=== PATIENT | male | born 2000 | race Caucasian/White ===

== ENCOUNTER 2024-10-31 13:48 | Emergency (ER) | payer OTHER, SELFPAY ==
[2024-10-31 14:00] VITALS: BP 148/91; PULSE 56; TEMP 36.6; O2SAT 100; BMI 18.7
--- OUTSIDE RECORDS SUMMARY | 2024-10-31 14:03 | XMS_ITS | Clinical Summary ---
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 Immunizations Immunization Administration Dates Next Due DTP 10/14/2012 DTaP 01/25/2005 DTaP, Unspecified 01/06/2002, 2,06/04/2001,03/21 HPV, Quadrivalent 05/26/2018,08/15/2015 Hep B, Adolescent or Pediatric 2000 HiB, unspecified 01/06/2002 Hib (HbOC) 06/04/2001 Hib / Hep B 07/07/2001,03/21/2001 IPV 01/25/2005, 2,06/04/2001,03/21 Influenza, injectable, MDCK, preservative free, quadrivalent 04/21/2021 Influenza, injectable, quadr ivalent, preservative free 01/13/2018 Influenza, live, intranasal 01/20/2009 Influenza, seasonal, injectable 01/25/2005 MMR 01/25/2005,01/06/2002 Meningococcal ACWY, unspecified 10/14/2012 Meningococcal MCV4P 05/24/2017 Novel [id number], preservative-free 04/13/2009,03/09/2009 Pneumococcal Conjugate PCV 7 06/04/2001,03/21/20 01 Varicella 10/14/2012,01/06/2002 Family History Medical History Relation Name Comments Cancer Maternal Grandfather Cancer Maternal Grandmother Alisa Depression Maternal Grandmother Alisa Asthma Mother Jyllian Heart disease Mother Jyllian Cancer Mother's Brother Sachin Relation Name Status Comments Brother 1 brother Maternal Grandfather Maternal Grandmother Alisa Mother Jyllian Mother's Brother Sachin Sister 6 sisters Social History Tobacco Use Types Packs/Day Years Used Date Smoking Tobacco: Some Days Cigarettes Started: 2020 Smokeless Tobacco: Never Tobacco Cessation:Ready to Q uit: Not Asked; Counseling Given: Not Answered Comments:Are you an other tobacco user? Yes CBD Alcohol Use Standard Drinks/Week Comments Not Currently 1 (1 standard drink = 0.6 oz pure alcohol) Every other week here and there, caffeine intake: 1-2 cups per day ; coffee Humiliation, Afraid, Rape, and Kick questionnair e Answer Date Recorded Within the last year, have y ou been afraid of your partner or ex-partner? No 12/25/2022 Within the last year, have y ou been humiliated or emotionally abused in other ways by your partner or ex-partner? No Within the last year, have y ou been kicked, hit, slapped, or otherwise physically hurt by your partner or ex-partner? No 12/25/2022 Within the last year, have y ou been raped or forced to have any kind of sexual activity by your partner or ex-partner? No 12/25/2022 Social Connection and Isolation Panel [NHANES] A nswer Date Recorded In a typical week, how many times do you talk on the phone with family, friends, or neighbors? Three times a week 12/25/2022 How often do you get togethe r with friends or relatives? Once a week 12/25/2022 How often do you attend chur ch or holiness services? Never 12/25/2022 Do you belong to any clubs o r organizations such as adventism groups, unions, fraternal or athletic groups, or school groups? No 12/25/2022 How often do you attend meet ings of the clubs or organizations you belong to? Never 12/25/2022 Are you , , di vorced, , never , or living with a partner? 12/25/2022 AUDIT-C Answer Date Recorded Q1: How often do you have a drink containing alc ohol? 2-4 times a month 12/25/2022 Q2: How many drinks containi ng alcohol do you have on a typical day when you are drinking? 1 or 2 12/25/2022 Q3: How often do you have si x or more drinks on one occasion? Less than monthly 12/25/2022 Overall Financial Resource Strain (CARDIA) Answe r Date Recorded How hard is it for you to pa y for the very basics like food, housing, medical care, and heating? Somewhat hard 12/25/2022 PHQ-2 Answer Date Recorded Patient Health Questionnaire-2 Score 0 12/25/2022 [facility] - Occupational Stress Questionnaire Answer Date Recorded Do you feel stress - tense, restless, nervous, or anxious, or unable to sleep at night because your mind is troubled all the time - these days? Very much 12/25/2022 Exercise Vital Sign Answer Date Recorde d On average, how many days pe r week do you engage in moderate to strenuous exercise (like a brisk walk)? 5 days 12/25/2022 On average, how many minutes do you engage in exercise at this level? 100 min 12/25/2022 Hunger Vital Sign Answer Date Recorded Within the past 12 months, y ou worried that your food would run out before you got the money to buy more. Never true Within the past 12 months, t he food you bought just didn't last and you didn't have money to get more. Sometimes true PRAPARE - Transportation Answer Date Re corded In the past 12 months, has l ack of transportation kept you from medical appointments or from getting medications? No 12/01 In the past 12 months, has l ack of transportation kept you from meetings, work, or from getting things needed for daily living? No 12/25/2022 Housing Stability Vital Sign Answer Eldon e Recorded In the last 12 months, was t here a time when you were not able to pay the mortgage or rent on time? No 12/25/2022 In the last 12 months, how many places have you lived? 1 12/25/2022 In the last 12 months, was t here a time when you did not have a steady place to sleep or slept in a snf (including now)? No 12/25/2022 Sex and Gender Information Value Date Recorded Sex Assigned at Not on file Legal Sex Male 7:20 PM EDT Gender Identity Not on file Sexual Orientation Not on file Last Filed Vital Signs Vital Sign Reading Time Taken Comments Blood Pressure 130/66 12/25/2022 4:32 PM EDT Pulse 105 12/25/2022 4:32 PM EDT Temperature 37.2 C (99 F) 12/25/2022 4:32 PM EDT Respiratory Rate - - Oxygen Saturation 98% 12/25/2022 4:32 PM EDT Inhaled Oxygen Concentration - - Weight 68.5 kg (151 lb) 12/25/2022 4:32 PM EDT Height 186.7 cm (6' 1.5 ) 12/25/2022 4:32 PM EDT Body Mass Index 19.65 12/25/2022 4:32 PM EDT Plan of Treatment Health Maintenance Due Date Last Done Comments Influenza Vaccine (#1) 2024 2, 01/13/2018, 01/20/2009, Additional history exists Insurance [employer] Care Teams Upholstery Handler Relationship Specialty Start Date End Date Taiwo Woodson DO [address] [facility] [address] [place] [address] PCP - General Family Medicine 08/07/22
--- OUTSIDE RECORDS SUMMARY | 2024-10-31 14:03 | XMS_ITS | Clinical Summary ---
Author Organization [facility] Address [id number] [address] [place] [address] Care Team Providers Care Mitten Stitcher Name Role Phone Carmela Loera MD Primary Care Provider Allergies No known active allergies Medications No known medications Active Problems No known active problems Family History Medical History Relation Name Comments Arrhythmia Maternal Grandfather afib Thyroid Issues Maternal Grandmother Arrhythmia Mother VT and SVT - ponce d ablation Asthma Neg Hx Clotting disorder Neg Hx Diabetes Neg Hx Heart attack Neg Hx Heart defect Neg Hx High Cholesterol Neg Hx Hypertension Neg Hx Seizures Neg Hx Stroke Neg Hx Sudden Neg Hx Relation Name Status Comments Maternal Grandfather Maternal Grandmother Mother Social History Tobacco Use Types Packs/Day Years Used Date Smoking Tobacco: Never Smokeless Tobacco: Never Alcohol Use Standard Drinks/Week Comments No 0 (1 standard drink = 0.6 oz pur e alcohol) Childcare Answer Date Recorded Childcare Unknown 09/04/2018 Employment Answer Date Recorded Employment Unknown 09/04/2018 Purpose - Life Answer Date Recorded Purpose and direction in life Unknown Sex and Gender Information Value Date Recorded Sex Assigned at Not on file Legal Sex Male 3:42 PM EDT Gender Identity Not on file Sexual Orientation Not on file Last Filed Vital Signs Vital Sign Reading Time Taken Comments Blood Pressure 119/80 08/30/2017 8:39 AM EDT Pulse 83 08/30/2017 8:39 AM EDT Temperature - - Respiratory Rate - - Oxygen Saturation 100% 08/30/2017 8:36 AM EDT Inhaled Oxygen Concentration - - Weight 65.7 kg (144 lb 13.5 oz) 08/30/2017 8:36 AM EDT Height 183.7 cm (6' 0.32 ) 08/30/2017 8:36 AM ED T Body Mass Index 19.47 08/30/2017 8:36 AM EDT Plan of Treatment Health Maintenance Due Date Last Done Comments Depression Screening 2012 Tobacco Screening 2012 Adult BMI Screening 2018 DTaP,Tdap and Td Vaccines (1 - Tdap) 12/21/2019 Influenza Vaccine 11/30/2024 Medical Devices Not on file Insurance [employer] [place] Care Teams Mitten Stitcher Relationship Specialty Start Date End Date Carmela Loera MD [address] [place] [address] PCP - General 08/22/17
--- OUTSIDE RECORDS SUMMARY | 2024-10-31 14:03 | XMS_ITS | Clinical Summary ---
Author Organization [facility] Address [address] [place] [address] Phone Care Team Providers Care Well Flow Operator Name Role Phone Taiwo Woodson DO Primary Care Provider [phone] Social History Tobacco Use Types Packs/Day Years Used Date Smoking Tobacco: Never Assessed Sex and Gender Information Value Date Recorded Sex Assigned at Not on file Legal Sex Male 3:44 PM EST Gender Identity Not on file Sexual Orientation Not on file Plan of Treatment Not on file Care Teams Well Flow Operator Relationship Specialty Start Date End Date Taiwo Woodson DO [address] [address] PCP - General 04/04/20
--- OUTSIDE RECORDS SUMMARY | 2024-10-31 14:03 | XMS_ITS | Encounter Summary ---
Author Organization [facility] Address [address] [place] [address] Care Team Providers Care Cnc Lathe Machine Operator Name Role Phone CharityTaiwo tyson Primary Care Provider [phone] Encounter Details Date Type Department Care Team (Late st Contact Info) Description 04/01/2024 External Result Encounter [facility] External Department Unsolicited Peggy Marquez, PALLAVI [address] [place] [address] Social History Tobacco Use Types Packs/Day Years Used Date Smoking Tobacco: Some Days Cigarettes Started: 2020 Smokeless Tobacco: Never Comments:Are you an other to bacco user? Yes CBD Alcohol Use Standard Drinks/Week [...] often do you attend chur ch or mu-ism services? Never 12/25/2022 Do you belong to any clubs o r organizations such as mu-ism groups, unions, fraternal or athletic groups, or [...] Recorded Patient Health Questionnaire-2 Score 0 12/25/2022 [facility] Occupat ional Health - Occupational Stress [...] place to sleep or slept in a long term (including now)? No 12/25/2022 Sex and Gender Information Value Date Recorded Sex Assigned at Not on file Legal Sex Male 7:20 PM EDT Gender Identity Not on file Sexual Orientation Not on file documented as of this encounter Plan of Treatment Not on file documented as of this encounter Procedures Procedure Name Priority Date/Time Associated Diagnosis Comments XR FOOT 3+ VIEWS LEFT 04/01/2024 1:07 PM EST documented in this encounter Results * XR foot 3+ views left (04/01/2024 1:07 PM EST) Anatomical Region Laterality Modality Lower Extremities, Foot Left Radi[facility] 04/01/2024 1:07 PM EST Impressions 04/01/2024 1:20 PM EST No acute displaced fracture Impression dictated by: Sunil Nixon M.D.04/01/2024 1:17 PM Dictation Location: [facility] Transcribed By: [facility] 04/01/24 1317 Dictated By: Sunil Nixon DO 04/01/24 1307 Signed By: <Electronically signed by Sunil Nixon DO in OV> 04/01/24 1317 Narrative 04/01/2024 1:[address] [address] XRay Report Signed Patient: Simeon Ku MR#: [id number] : 2000 Acct:[id number] Age/Sex: 23 / M ADM Date: 04/01/24 Loc: ER Room: Type: [facility] ER Attending Dr: Copies to: Peggy Marquez APRN Ordering Provider: Peggy Marquez APRN Date of Service: 04/01/24 XR/XR foot LT min 3V*: Extremity Injury, Lower 3 views left foot plain film COMPARISON:None HISTORY: Left foot injury. Bruising of the first toe ACUTE FINDINGS: None DEGENERATIVE CHANGE: Unremarkable SOFT TISSUE FINDINGS: Unremarkable JOINT EFFUSION: None POSTOP CHANGES: None BONE MINERALIZATION: Adequate XR/XR foot LT min 3V* Procedure Note Radiology, Radiologist, MD - 04/01/[address] [address] XRay Report Signed Patient: Simeon Ku MMR#: [id number] : 2000Acct:[id number] Age/Sex: 23 / MADM Date: 04/01/24 Loc: ER Room:Type: [facility] ER Attending Dr: Copies to: Peggy Marquez APRN Ordering Provider: Peggy Marquez APRN Date of Service: 04/01/24 XR/XR foot LT min 3V*: Extremity Injury, Lower 3 views left foot plain film COMPARISON:None HISTORY: Left foot injury. Bruising of the first toe ACUTE FINDINGS: None DEGENERATIVE CHANGE: Unremarkable SOFT TISSUE FINDINGS: Unremarkable JOINT EFFUSION: None POSTOP CHANGES: None BONE MINERALIZATION: Adequate XR/XR foot LT min 3V* IMPRESSION: No acute displaced fracture Impression dictated by: Sunil Nixon M.D.04/01/2024 1:17 PM Dictation Location: [place] [address] Transcribed By: [facility] 04/01/24 1317 Dictated By: Sunil Nixon DO 04/01/24 1307 Signed By: <Electronically signed by Sunil Nixon DO in OV> 04/01/24 1317 us Peggy Marquez [employer] IMG XR PROCEDURES Final Resu lt documented in this encounter Visit Diagnoses Not on filedocumented in this encounter Care Teams Cnc Lathe Machine Operator Relationship Specialty Start Date End Date Taiwo Woodson DO [address] [facility] [address] [place] [id number] PCP - General Family Medicine 08/07/22 documented as of this encounter
--- OUTSIDE RECORDS SUMMARY | 2024-10-31 14:03 | XMS_ITS | Encounter Summary ---
Author Organization [facility] Address [address] [facility] [place] [address] Care Team Providers Care Breaker Up Name Role Phone CharityTaiwo tyson Primary Care Provider [phone] Encounter Details Date Type Department Care Team (Late st Contact Info) Description 12/25/2022 Abstract [facility] [address] [facility] [address] [place] [id number] Niranjan Cruz PA [address] [facility] [address] [place] [address] Social History Tobacco Use Types Packs/Day Years [...] often do you attend chur ch or latter-day services? Never 12/25/2022 Do you belong to any clubs o r organizations such as zoroastrianism groups, unions, fraternal or athletic groups, or [...] Recorded Patient Health Questionnaire-2 Score 0 12/25/2022 [facility] Occupat ional Health - Occupational Stress [...] place to sleep or slept in a long-term (including now)? No 12/25/2022 Sex and Gender Information Value Date Recorded Sex Assigned at Not on file Legal Sex Male 7:20 PM EDT Gender Identity Not on file Sexual Orientation Not on file COVID-19 Exposure Response Date Recorded In the last 10 days, have yo u been in contact with someone who was confirmed or suspected to have Coronavirus/COVID-19? No / Unsure 12/25/2022 1:58 PM EDT documented as of this encounter Functional Status * Audit-C Score Answer Date of Assessment Author 3 12/25/2022 1:57 PM EDT Sundar, Generic * Q1: How often do you have a drink containing alcohol? Answer Date of Assessment Author 2-4 times a month 12/25/2022 1:57 PM EDT Sundar , Generic * Q2: How many drinks containing alcohol do you have on a typical day when you are drinking? Answer Date of Assessment Author 1 or 2 12/25/2022 1:57 PM EDT Sundar, Generic * Q3: How often do you have six or more drinks on one occasion? Answer Date of Assessment Author Less than monthly 12/25/2022 1:57 PM EDT Mychart , Generic * Over the past 2 weeks, how often have you been bothered by any of the following problems? Question Answer Date of Assessment Author Little interest or pleasure in doing things Not at all 12/25/2022 4:42 PM EDT Marielle Flores MA Feeling down, depressed, or hopeless Not at all 12/25/2022 4:42 PM EDT Marielle Flores MA Patient Health Questionnaire -2 Score 0 12/25/2022 4:42 PM EDT Marielle Flores MA documented as of this encounter Plan of Treatment Not on file documented as of this encounter Visit Diagnoses Not on filedocumented in this encounter Care Teams Breaker Up Relationship Specialty Start Date End Date Taiwo Woodson DO [address] [facility] [address] [place] [address] PCP - General Family Medicine 08/07/22 documented as of this encounter
--- OUTSIDE RECORDS SUMMARY | 2024-10-31 14:03 | XMS_ITS | Patient Health Record ---
Author Organization [facility] Address [address] [place] [address] Care Team Providers Care Brass Cleaner Name Role Phone Dr. Taiwo Woodson Primary Care Provider Unavailable Allergies No Known Allergies Reason For Referral No Information Medications Medication SIG (Take, Route, Fr equency, Duration) Notes Start Date End Date Status Atenolol 25 MG 1 tab(s) orally once a day Active Social History Tobacco Use: Social History Observation Description Date Details (start date - stop date) Current Smoker NA - NA Tobacco Use Question Answer Notes Are you a Current smoker How often do you smoke cigarettes Some days but not every day Are you interested in quitting? Thinking about q uitting Additional Findings: Tobacco User e-Cigarette Problems Problem Type SNOMED Code ICD Code Onset Dates Problem Status W/U Status Risk Notes Problem Hypertension (39704243) Hypertension (I10) Active confirmed Problem Smoker (49297755) Smoker (F17.200) Active confirmed Plan Of Treatment No Information Insurance Providers Payer Name Payer Address Payer Phone Subscriber Number Group Number Insured Name Patient Relationship to Insured Coverage Start Date Coverage End Date [employer] [address] [address] [place] [address] [id number] ELIZABETH MCKEON Natural Child - Insured has Financial Responsibility [employer] [place] [employer] [address] [place] [address] [id number] Simeon Gibbs Self - patient is the insured Medical (General) History Medical History History ICD Code Hypertension I10 Surgical History Surgery Date(Month/Year) ear tubes wisdom teeth extraction
--- NOTE | 2024-10-31 14:11 | CT_ITS ---
The [address] [address] Patient Name: DOROTA AWAN MRN: [id number] date: 2000 Sex: M Assigned Patient Location: ER Current Patient Location: Accession/Order Number: [id number] Exam Date: 10/31/2024 15:36 Report Date: 10/31/2024 15:44 At the request of: BRANDY SAMUEL Procedure: CT facial bones w con CT facial bones w con 10/31/2024 3:10 PM SIGNS AND SYMPTOMS: Facial swelling status post cyst removal CONTRAST: 100 mL of intravenous Omnipaque 300 TECHNIQUE: Multidetector CT axial slices of the facial bones were obtainedwith IV contrast. Helical, sagittal, coronal, and 3-D reconstructions were performed and viewed on a separate workstation and reviewed to further define anatomy and possible pathology. CT was performed with one or more of the following dose reduction techniques: Automated exposure control, adjustment of the mA and/or kV according to patient size, or use of iterative reconstruction technique. COMPARISON: None. FINDINGS: Fracture: None. Paranasal sinuses and mastoids: There is polypoid mucosal thickening in the maxillary sinuses. Soft tissue swelling: There is soft tissue swelling in the frontal scalp extending to the right superficial temporal scalp, along the bridge of the nose, and the periorbital soft tissues right greater than left. No abscess formation. Globes: Intact. Upper aerodigestive tract: Within normal limits. Joints: Intact. Temporal mandibular joints: Intact. Infratemporal fossa: Within normal limits. CT/CT facial bones w con IMPRESSION: No evidence of fracture or dislocation. There is soft tissue swelling in the frontal scalp extending to the right superficial temporal scalp, along the bridge of the nose, and the periorbital soft tissues right greater than left. No abscess formation. Impression dictated by: Jaime Landaverde M.D. 10/31/2024 3:44 PM Dictation Location: [place] [address] Electronically authenticated by: [id number] Date: 10/31/2024 15:44
--- NOTE | 2024-10-31 14:12 | ED.SKABFB1 ---
HPI - Skin/Abscess/Foreign Bdy General Chief complaint: Skin/Abscess/Foreign Body Stated complaint: SURGERY COMPLACTIONS Time Seen by Provider: 10/31/24 14:07 Source: patient Mode of arrival: walk-in Limitations: no limitations History of Present Illness HPI narrative: Patient is a 23-year-old male who presents to the emergency department with his family for reevaluation of facial swelling after procedure. Patient states 4 days ago he had a cyst removed from his scalp. This was performed by a liner machine operator. He was told that he would have swelling and bruising around the area but he has had worsening swelling over the forehead and bilateral eyes. He has not had any redness, drainage, fevers, vomiting. He has no pain. He states today his right eye was significantly swollen. Related Data Home Medications ?Medication ?Instructions ?Recorded ?Confirmed No Known Home Medications 10/31/24 10/31/24 Allergies Allergy/AdvReac Type Severity Reaction Status Date / Time No Known Drug Allergies Allergy Verified 10/31/24 13:59 Review of Systems ROS Constitutional Denies: fever or chills Ears, nose, mouth, and throat Denies: throat pain or throat swelling Cardiovascular Denies: chest pain Respiratory Denies: shortness of breath or cough Gastrointestinal Denies: nausea or vomiting Integumentary/Breast Denies: rash Hematologic/Lymphatic Denies: easy bruising or easy bleeding PFSH PFS Social History Little interest or pleasure in doing things: not at all Feeling down, depressed, or hopeless: not at all Exam Narrative Exam Narrative: Gen.: Awake, alert, in no distress Head: Normocephalic, atraumatic ENT: Moist mucous membranes, face is swollen over the forehead and orbits with right upper and lower eyelids swollen shut. No erythema, red streaking. Well-healing incision of the scalp past the hairline. No surrounding redness or drainage. Respiratory: No respiratory distress Cardio: Regular rate and rhythm Extremities: Moves extremities equally Psych: Normal mood and affect Neuro: No focal neuro deficit Skin: Warm, dry, intact Constitutional Vital Signs, click to edit/add: Last Vital Signs Temp 98 F 10/31/24 14:00 Pulse 56 L 10/31/24 14:00 Resp 14 10/31/24 14:00 BP 148/91 H 10/31/24 14:00 Pulse Ox 100 10/31/24 14:00 O2 Del Method Room Air 10/31/24 14:00 Course Vital Signs Vital signs: Vital Signs Temperature 98 F 10/31/24 14:00 Pulse Rate 56 L 10/31/24 14:00 Respiratory Rate 14 10/31/24 14:00 Blood Pressure 148/91 H 10/31/24 14:00 Pulse Oximetry 100 10/31/24 14:00 Oxygen Delivery Method Room Air 10/31/24 14:00 Temperature 98 F 10/31/24 14:00 Pulse Rate 56 L 10/31/24 14:00 Respiratory Rate 14 10/31/24 14:00 Blood Pressure 148/91 H 10/31/24 14:00 Pulse Oximetry 100 10/31/24 14:00 Oxygen Delivery Method Room Air 10/31/24 14:00 MDM - Skin/Abscess/Foreign Bdy MDM Narrative Medical decision making narrative: Exam is consistent with swelling saddling after procedure on the scalp. There is no redness, fluctuance or evidence of wound infection at this time. CT shows the patient has no evidence of facial abscess. CBC is within normal limits. Patient given education and reassurance, discharged to follow-up with PCP and return to the ER if symptoms change or worsen Medical Records Attestation: I reviewed the patient's medical records. Lab Data Attestation: I reviewed the patient's lab results. Labs: Lab Results 10/31/24 Range/Units 14:30 WBC 5.3 (4.0-11.0) 10^3/uL RBC 5.22 (4.70-6.10) 10^6/uL Hgb 15.3 (14.0-18.0) g/dL Hct 44.7 (42.0-54.0) % MCV 85.6 (80.0-94.0) fL MCH 29.3 (25.9-34.0) pg MCHC 34.2 (29.9-35.2) g/dL RDW 13.0 (11.0-15.0) % Plt Count 224 (150-450) 10^3/uL MPV 9.7 (9.5-13.5) fL Neut % (Auto) 56.3 (43.0-75.0) % Lymph % (Auto) 34.1 (20.5-60.0) % Reynolds % (Auto) 6.4 (1.7-12.0) % Eos % (Auto) 2.1 (0.9-7.0) % Baso % (Auto) 0.9 (0.2-2.0) % Neut # (Auto) 3.0 (1.4-6.5) 10^3/uL Lymph # (Auto) 1.8 (1.2-3.8) 10^3/uL Reynolds # (Auto) 0.3 (0.3-0.8) 10^3/uL Eos # (Auto) 0.1 (0.0-0.7) 10^3/uL Baso # (Auto) 0.1 (0.0-0.1) 10^3/uL Abs Immat Gran (auto) 0.01 (0.00-0.03) 10^3/uL Imm/Tot Granulo (auto) 0.2 (0.0-0.5) % Imaging Data CT facial bones: Attestation: I have reviewed the pertinent imaging results. Radiologist's impression: ITS Impressions Facial Bones CT 10/31/24 14:11 IMPRESSION: No evidence of fracture or dislocation. There is soft tissue swelling in the frontal scalp extending to the right superficial temporal scalp, along the bridge of the nose, and the periorbital soft tissues right greater than left. No abscess formation. Impression dictated by: Jaime Landaverde M.D. 10/31/2024 3:44 PM Dictation Location: [place] [id number] Electronically authenticated by: [id number] Y Date: 10/31/2024 15:44 Discharge Plan Discharge Chief Complaint: Skin/Abscess/Foreign Body Clinical Impression: Facial swelling Patient Disposition: Home, Self-Care Time of Disposition Decision: 15:50 Condition: Good Prescriptions / Home Meds: No Action No Known Home Medications Print Language: Mohawk Instructions: Wound Infection (ED) Referrals: Lora MCCLELLAND [Primary Care Provider, Family Practice] - 1 week
[2024-10-31 14:36] LABS: Hematocrit 44.7 % (42.0-54.0); Hemoglobin 15.3 g/dL (14.0-18.0); Immature Granulocytes Abs Auto 0.01 10^3/uL (0.00-0.03); Immature Granulocytes Pct Auto 0.2 % (0.0-0.5); Lymphocytes Absolute Auto 1.8 10^3/uL (1.2-3.8); Mean Corpuscular HGB Conc 34.2 g/dL (29.9-35.2); Mean Corpuscular Hemoglobin 29.3 pg (25.9-34.0); Mean Corpuscular Volume 85.6 fL (80.0-94.0); Platelet Count 224 10^3/uL (150-450); Red Blood Count 5.22 10^6/uL (4.70-6.10); White Blood Count 5.3 10^3/uL (4.0-11.0)
== END 2024-10-31 16:07 | disposition home or self-care (01) ==
PROVIDERS: Physician Assistant; Emergency Provider Emergency Medicine; PCP Family Medicine
DX: R22.0 Localized swelling, mass and lump, head (principal); Z98.890 Other specified postprocedural states
CPT/HCPCS: 36415; 70487; 85025; 99285; Q9967